=== PATIENT | female | born 1970 | race Caucasian/White ===

== ENCOUNTER → 2021-01-20 | Outpatient (CLI) | payer BC, OTHER ==
[~2021-01-20] MED LIST: ALDACTONE 25MG25 MG PO; COZAAR100 MG PO; FLONASE 0.05% N16 GM; HYDROCHLOROTHIA25 MG PO; LEVOTHYROXINE75 MC1 PO; METFORMIN HCL500 M2 PO; MIRALAX17 GM PO; PROTONIX40 MG PO; VOLTAREN100 GM TP; ZANAFLEX4 MG PO
[2021-01-20 12:23] LABS: HEMOGLOBIN 14.3 gm/dl (12.3-15.3); RED BLOOD COUNT 4.65 M/UL (4.00-5.10); WHITE BLOOD COUNT 7.7 K/UL (4.5-11.0)
[2021-01-20 12:38] LABS: BUN/CREATININE RATIO 24 (0-10)
== END ==
LOC: OPSV2 11:28
PROVIDERS: Orthopaedic Surgery
DX: Z01.818 Encounter for other preprocedural examination (principal); Z20.822 Contact with and (suspected) exposure to COVID-19
CPT/HCPCS: 36415; 71046; 80048; 85025; 93005

== ENCOUNTER → 2021-01-30 | Day surgery (SDC) | payer BC, OTHER ==
[~2021-01-30] VITALS: Ht 167.6 cm; Wt 98.0 kg
== END | disposition home or self-care (01) ==
LOC: OR 06:06
DX: S43.431A Superior glenoid labrum lesion of right shoulder, initial encounter (principal); M75.111 Incomplete rotator cuff tear or rupture of right shoulder, not specified as traumatic; M75.51 Bursitis of right shoulder; M19.011 Primary osteoarthritis, right shoulder; M25.811 Other specified joint disorders, right shoulder; M75.21 Bicipital tendinitis, right shoulder; I10 Essential (primary) hypertension; E07.9 Disorder of thyroid, unspecified; E28.2 Polycystic ovarian syndrome; K21.9 Gastro-esophageal reflux disease without esophagitis; Z79.899 Other long term (current) drug therapy; X58.XXXA Exposure to other specified factors, initial encounter
CPT/HCPCS: C1713; J0171; J0592; J0690; J1100; J2001; J2250; J2370; J2405; J2704; J2710; J2795; J3010; J7120

== ENCOUNTER → 2021-08-10 | Outpatient (CLI) | payer BC | LOC: RAD 07-14 09:00 | DX: M67.813 Other specified disorders of tendon, right shoulder (principal) | CPT/HCPCS: 36415; 73040; 73222; 85049; 85610; 85730; A9577; Q9962 ==

== ENCOUNTER → 2021-09-16 | Outpatient (CLI) | payer BC ==
[~2021-09-16] MED LIST changes: +CELEBREX200 MG PO
[2021-09-16 11:11] LABS: HEMOGLOBIN 13.6 gm/dl (12.3-15.3); RED BLOOD COUNT 4.58 M/UL (4.00-5.10); WHITE BLOOD COUNT 7.9 K/UL (4.5-11.0)
[2021-09-16 11:24] LABS: BUN/CREATININE RATIO 28 (0-10)
== END ==
LOC: OPSV2 09-10 08:00
PROVIDERS: Orthopaedic Surgery
DX: Z01.818 Encounter for other preprocedural examination (principal); R94.31 Abnormal electrocardiogram [ECG] [EKG]
CPT/HCPCS: 36415; 71046; 80048; 85027; 93005

== ENCOUNTER → 2021-09-18 | Day surgery (SDC) | payer BC | END | disposition home or self-care (01) | LOC: OR 08-21 07:30 | DX: M25.811 Other specified joint disorders, right shoulder (principal); M75.111 Incomplete rotator cuff tear or rupture of right shoulder, not specified as traumatic; I10 Essential (primary) hypertension; E07.9 Disorder of thyroid, unspecified; E28.2 Polycystic ovarian syndrome; Z79.84 Long term (current) use of oral hypoglycemic drugs; Z79.899 Other long term (current) drug therapy; Z20.822 Contact with and (suspected) exposure to COVID-19 | CPT/HCPCS: 82962; C1713; J0171; J0690; J1100; J1885; J2001; J2250; J2370; J2405; J2704; J2710; J2795; J3010; J7030; J7120 ==

== ENCOUNTER → 2021-12-18 | Outpatient (CLI) | payer BC | LOC: MAMO 11-10 08:00 | DX: Z12.31 Encounter for screening mammogram for malignant neoplasm of breast (principal) | CPT/HCPCS: 77063; 77067 ==